=== PATIENT | male | born 1955 | race Caucasian/White ===

== ENCOUNTER 2021-08-04 09:05 | Outpatient (CLI) | payer OTHER, SELFPAY ==
--- NOTE | ~2021-08-04 | XR_ITS ---
EXAMINATION: XR lumbar spine 2-3V DATE: 08/04/2021 10:53 INDICATION: Low back pain TECHNIQUE: Anteroposterior and lateral views of the lumbar spine, and cone-down lateral view of the l umbosacral junction were obtained. COMPARISON: None. FINDINGS: There is no fracture. Bone alignment is normal. The vertebral body heights are maintained. There is mild loss of intervertebral disc space height at L5-S1. Small degenerative osteophytes proje ct from the anterior endplates of multiple vertebral bodies. 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 Calcified atherosclerosis is noted. IMPRESSION: 1. Moderate lumbar spondylosis without acute findings. Reviewed, dictated and finalized at location B.
--- NOTE | ~2021-08-04 | XR_ITS ---
EXAMINATION: XR sacrum coccyx min 2V INDICATION: Lumbar spine pain and radiculopathy TECHNIQUE: Three views of the sacrum and coccyx are obtained. COMPARISON: None available FINDINGS: Bone alignment is normal. There is no fracture. Moderate spondylosis is noted in the lower lumbar spine. 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 Calcified atherosclerosis is noted. IMPRESSION: 1. No acute osseous abnormality. Reviewed, dictated and finalized at location B.
== END 2021-08-04 09:06 ==
PROVIDERS: PCP Internal Medicine; Visit Provider Nurse Practitioner Family
DX: M47.26 Other spondylosis with radiculopathy, lumbar region (principal)
CPT/HCPCS: 72100; 72220

== ENCOUNTER 2021-08-08 15:05 | Outpatient (CLI) | payer OTHER, SELFPAY ==
--- NOTE | ~2021-08-08 | MR_ITS ---
EXAMINATION: MR lumbar spine wo con DATE: 08/08/2021 15:52 INDICATION: Low back pain. Lumbar radiculopathy. TECHNIQUE: Magnetic resonance imaging (MRI) of the lumbar spine was performed without intravenous con trast. Sequences included sagittal T2-weighted FSE, sagittal T2-weighted FS FSE, sagittal T1-weighted FSE, and axial T2-weighted FSE. COMPARISON: Lumbar spine radiographs 08/04/2021 FINDINGS: Bone alignment is normal. Vertebral body heights are normal. There is mildly decreased disc height at L3-L4 and L5-S1. The distal spinal cord signal intensity is normal. The conus medullaris i s at L1. The following disc levels are specifically discussed: L1-L2: The disc does not extend beyond the endplate margin. There is mild bilateral facet joint osteo arthritis. There is no neural foraminal stenosis. There is no central canal stenosis. L2-L3: The disc does not extend beyond the endplate margin. There is mild bilateral facet joint osteo arthritis. There is no neural foraminal stenosis. There is no central canal stenosis. L3-L4: The disc is bulging. There is moderate bilateral facet joint osteoarthritis. There is mild genie ateral neural foraminal stenosis. There is mild central canal stenosis. L4-L5: The disc is bulging and has an annular fissure. There is severe bilateral facet joint osteoart hritis. There is moderate bilateral neural foraminal stenosis. There is mild central canal stenosis. There is asymmetric moderate stenosis of right lateral recess. L5-S1: The disc is bulging and has an annular fissure. There is severe bilateral facet joint osteoart hritis. There is moderate bilateral neural foraminal stenosis. There is moderate central canal stenos is. IMPRESSION: 1. Moderate lumbar spondylosis. Reviewed, dictated and finalized at location B.
== END 2021-08-08 15:06 ==
PROVIDERS: PCP Internal Medicine; Visit Provider Nurse Practitioner Family
DX: M54.50 Low back pain, unspecified (principal); M54.16 Radiculopathy, lumbar region; M43.06 Spondylolysis, lumbar region
CPT/HCPCS: 72148

== ENCOUNTER 2025-03-12 10:11 | Outpatient (CLI) | payer MEDICARE, SELFPAY ==
[2025-03-12 11:29] LABS: Iron 81 ug/dL (49-181)
[2025-03-12 11:45] LABS: Percent Iron Saturation 22 % (20-50)
[2025-03-12 12:11] LABS: Ferritin 103.00 ng/mL (11.1-264)
[2025-03-16 08:09] LABS: ANA by IFA Rfx Titer/Pattern Negative (.)
[2025-03-17 03:08] LABS: Copper, Serum or Plasma 89 ug/dL (69-132)
== END 2025-03-12 10:12 | disposition home or self-care (01) ==
LOC: ANHLAB 10:18
PROVIDERS: PCP Internal Medicine
DX: R74.8 Abnormal levels of other serum enzymes (principal)
CPT/HCPCS: 36415; 82103; 82390; 82525; 82728; 83540; 83550; 86015; 86038